=== PATIENT | female | born 1985 | race Caucasian/White ===

== ENCOUNTER 2018-08-11 22:10 | Observation (INO) | payer OTHER ==
[2018-08-11] MEDS ORDERED: SODIUM CHLORIDE 0.9% 1,000 ML IV STA (22:27)
[2018-08-11] MEDS ORDERED: MORPHINE SULFATE 4 MG/ML SYRINGE IV STA (22:27)
[2018-08-11 23:13] LABS: Basophils % (A) 0 %; Eosinophils # (A) 0.3 k/uL (0-0.7); Eosinophils % (A) 2 %; HGB 14.1 gm/dL (11.4-16.0); Lymphocytes # (A) 0.8 k/uL (1.0-4.8); Lymphocytes % (A) 5 %; MCH 29.3 pg (25.0-35.0); MCHC 31.9 g/dL (31.0-37.0); Mean Platelet Volume 7.4; Monocytes # (A) 0.7 k/uL (0-1.0); Monocytes % (A) 4 %; Neutrophils # (A) 13.2 k/uL (1.3-7.7); Neutrophils % (A) 87 %; Platelet Count 208 k/uL (150-450); RBC 4.79 m/uL (3.80-5.40); RDW 12.9 % (11.5-15.5); WBC 15.1 k/uL (3.8-10.6)
[2018-08-11] MEDS: ONDANSETRON 4 MG/2 ML VIAL IVP STA (23:14)
[2018-08-11 23:27] LABS: ALT 29 U/L (9-52); AST 27 U/L (14-36); Albumin 4.5 g/dL (3.5-5.0); Alkaline Phosphatase 75 U/L (38-126); Amylase 53 U/L (30-110); Anion Gap 10 mmol/L; Appearance,Urine Cloudy (Clear); Bacteria,Urine Rare /hpf; Bilirubin,Urine Negative (Negative); Blood Urea Nitrogen 16 mg/dL (7-17); Blood,Urine Negative (Negative); Calcium 9.8 mg/dL (8.4-10.2); Carbon Dioxide 26 mmol/L (22-30); Chloride 104 mmol/L (98-107); Color,Urine Yellow; Glucose 107 mg/dL (74-99); Glucose,Urine (UA) Negative (Negative); Ketones,Urine Negative (Negative); Leukocyte Esterase,Urine Negative (Negative); Lipase 81 U/L (23-300); Mucus,Urine Rare /hpf; Nitrite,Urine Negative (Negative); Potassium 4.3 mmol/L (3.5-5.1); Protein,Urine Negative (Negative); RBC,Urine 1 /hpf (0-5); Sodium 140 mmol/L (137-145); Specific Gravity,Urine 1.022 (1.001-1.035); Squamous Epithelial Cell,Urine 8 /hpf (0-4); Total Bilirubin 1.1 mg/dL (0.2-1.3); Total Protein 7.6 g/dL (6.3-8.2); Urobilinogen,Urine <2.0 mg/dL (<2.0); WBC,Urine 2 /hpf (0-5)
[2018-08-11] MEDS ORDERED: HYDROmorphone 2 MG/ML 1 ML SYRINGE IVP STA (23:59)
--- NOTE | 2018-08-11 23:59 | ED ---
Abdominal Pain HPI - General Source: patient Mode of arrival: ambulatory Limitations: no limitations <Stacy Yoon - Last Filed: 08/12/18 01:05> <Maggie Holt - Last Filed: 08/12/18 02:57> - General Chief Complaint: Abdominal Pain Stated Complaint: abd pain Time Seen by Provider: 08/11/18 22:20 - History of Present Illness Initial Comments: 33-year-old female patient presents to the emergency department today for evaluation of right lower quadrant abdominal pain. Patient states the pain started around 1700 this afternoon. She describes the pain as a sharp stabbing pain. States the pain does radiate through to her back. States that she has vomited twice since pain onset. Denies any diarrhea. Patient states she did attempt to have a bowel movement but was unable to. Denies fever or chills. Patient states that she's had normal urination with no hematuria, dysuria, urinary frequency, urinary urgency. Patient denies history of similar type pain. Patient denies any recent rash, shortness breath, chest pain, back pain, numbness, tingling, dizziness, weakness, headache, visual changes, or any other complaints. (Stacy Yoon) - Related Data Home Medications Medication Instructions Recorded Confirmed Zinc 50 mg PO DAILY 07/01/15 08/11/18 Simethicone [Gas-X] 125 mg PO DAILY PRN 08/11/18 08/11/18 Allergies Allergy/AdvReac Type Severity Reaction Status Date / Time No Known Allergies Allergy Verified 08/11/18 22:34 Review of Systems ROS Other: All systems not noted in ROS Statement are negative. <Stacy Yoon - Last Filed: 08/12/18 01:05> ROS Other: All systems not noted in ROS Statement are negative. <Maggie Holt - Last Filed: 08/12/18 02:57> ROS Statement: Those systems with pertinent positive or pertinent negative responses have been documented in the HPI. Past Medical History Additional Past Medical History / Comment(s): HOLE IN HEART History of Any Multi-Drug Resistant Organisms: None Reported Additional Past Surgical History / Comment(s): HEART SURGERY, SHOULDER FRACTURE Past Psychological History: No Psychological Hx Reported Smoking Status: Never smoker Past Alcohol Use History: None Reported Past Drug Use History: None Reported <Stacy Yoon - Last Filed: 08/12/18 01:05> General Exam Limitations: no limitations General appearance: alert, in no apparent distress, other (Physical well- developed, well-nourished adult female patient in mild distress related to pain. Vital signs upon presentation are temperature 98.1F, pulse 79, respirations 18, blood pressure 133/74, pulse ox 96% on room air.) Eye exam: Present: normal appearance, PERRL, EOMI. Absent: scleral icterus, conjunctival injection, periorbital swelling ENT exam: Present: normal exam, normal oropharynx, mucous membranes moist Respiratory exam: Present: normal lung sounds bilaterally. Absent: respiratory distress, wheezes, rales, rhonchi, stridor Cardiovascular Exam: Present: regular rate, normal rhythm, normal heart sounds. Absent: systolic murmur, diastolic murmur, rubs, gallop, clicks GI/Abdominal exam: Present: soft, tenderness (Right lower quadrant tenderness), normal bowel sounds. Absent: distended, guarding, rebound, rigid Neurological exam: Present: alert, oriented X3, CN II-XII intact Psychiatric exam: Present: normal affect, normal mood Skin exam: Present: warm, dry, intact, normal color. Absent: rash <Stacy Yoon M - Last Filed: 08/12/18 01:05> Course Vital Signs 08/11/18 08/11/18 08/12/18 22:16 23:17 00:11 Temperature 98.1 F Pulse Rate 79 89 85 Respiratory 18 16 18 Rate Blood Pressure 133/74 117/78 O2 Sat by Pulse 96 99 100 Oximetry 08/12/18 01:02 Temperature Pulse Rate 85 Respiratory 16 Rate Blood Pressure 102/72 O2 Sat by Pulse 98 Oximetry Medical Decision Making - Lab Data Result diagrams: 08/11/18 23:00 08/11/18 23:00 - Radiology Data Radiology results: report reviewed, image reviewed <Stacy Yoon - Last Filed: 08/12/18 01:05> - Lab Data Result diagrams: 08/11/18 23:00 08/11/18 23:00 <Maggie Holt - Last Filed: 08/12/18 02:57> - Medical Decision Making 33-year-old female patient percents emergency department today for evaluation of right lower quadrant abdominal pain. Patient to episodes of vomiting. Physical examination does reveal tenderness to the right lower quadrant. Labs reviewed and did reveal elevated white blood cell count at 15,000. CT abdomen and pelvis was obtained and did show evidence for acute appendicitis with no complicating process. Patient was started on Zosyn. We will provide IV fluids and pain management. Patient will be NPO. We'll admit to Dr. Mohamud. (Stacy Yoon) Saw the patient, patient with right lower quadrant abdominal pain and leukocytosis and CT confirmation of acute appendicitis. Patient care was discussed with surgeon home paraprofessional Dr. Mohamud who accepts the patient to her service with a plan for appendectomy later in the day. (Maggie Holt) - Lab Data Lab Results 08/11/18 08/11/18 08/11/18 Range/Units 23:00 23:00 23:00 WBC 15.1 H (3.8-10.6) k/uL RBC 4.79 (3.80-5.40) m/uL Hgb 14.1 (11.4-16.0) gm/dL Hct 44.0 (34.0-46.0) % MCV 92.0 (80.0-100.0) fL MCH 29.3 (25.0-35.0) pg MCHC 31.9 (31.0-37.0) g/dL RDW 12.9 (11.5-15.5) % Plt Count 208 (150-450) k/uL Neutrophils % 87 % Lymphocytes % 5 % Monocytes % 4 % Eosinophils % 2 % Basophils % 0 % Neutrophils # 13.2 H (1.3-7.7) k/uL Lymphocytes # 0.8 L (1.0-4.8) k/uL Monocytes # 0.7 (0-1.0) k/uL Eosinophils # 0.3 (0-0.7) k/uL Basophils # 0.0 (0-0.2) k/uL Sodium 140 (137-145) mmol/L Potassium 4.3 (3.5-5.1) mmol/L Chloride 104 (98-107) mmol/L Carbon Dioxide 26 (22-30) mmol/L Anion Gap 10 mmol/L BUN 16 (7-17) mg/dL Creatinine 0.67 (0.52-1.04) mg/dL Est GFR (CKD-EPI)AfAm >90 (>60 ml/min/1.73 sqM) Est GFR (CKD-EPI)NonAf >90 (>60 ml/min/1.73 sqM) Glucose 107 H (74-99) mg/dL Calcium 9.8 (8.4-10.2) mg/dL Total Bilirubin 1.1 (0.2-1.3) mg/dL AST 27 (14-36) U/L ALT 29 (9-52) U/L Alkaline Phosphatase 75 (38-126) U/L Total Protein 7.6 (6.3-8.2) g/dL Albumin 4.5 (3.5-5.0) g/dL Amylase 53 (30-110) U/L Lipase 81 (23-300) U/L Urine Color Urine Appearance (Clear) Urine pH (5.0-8.0) Ur Specific [place] (1.001-1.035) Urine Protein (Negative) Urine Glucose (UA) (Negative) Urine Ketones (Negative) Urine Blood (Negative) Urine Nitrite (Negative) Urine Bilirubin (Negative) Urine Urobilinogen (<2.0) mg/dL Ur Leukocyte Esterase (Negative) Urine RBC (0-5) /hpf Urine WBC (0-5) /hpf Ur Squamous Epith Cells (0-4) /hpf Urine Bacteria (None) /hpf Urine Mucus (None) /hpf Urine HCG, Qual Not Detected (Not Detectd) 08/11/18 Range/Units 23:00 WBC (3.8-10.6) k/uL RBC (3.80-5.40) m/uL Hgb (11.4-16.0) gm/dL Hct (34.0-46.0) % MCV (80.0-100.0) fL MCH (25.0-35.0) pg MCHC (31.0-37.0) g/dL RDW (11.5-15.5) % Plt Count (150-450) k/uL Neutrophils % % Lymphocytes % % Monocytes % % Eosinophils % % Basophils % % Neutrophils # (1.3-7.7) k/uL Lymphocytes # (1.0-4.8) k/uL Monocytes # (0-1.0) k/uL Eosinophils # (0-0.7) k/uL Basophils # (0-0.2) k/uL Sodium (137-145) mmol/L Potassium (3.5-5.1) mmol/L Chloride (98-107) mmol/L Carbon Dioxide (22-30) mmol/L Anion Gap mmol/L BUN (7-17) mg/dL Creatinine (0.52-1.04) mg/dL Est GFR (CKD-EPI)AfAm (>60 ml/min/1.73 sqM) Est GFR (CKD-EPI)NonAf (>60 ml/min/1.73 sqM) Glucose (74-99) mg/dL Calcium (8.4-10.2) mg/dL Total Bilirubin (0.2-1.3) mg/dL AST (14-36) U/L ALT (9-52) U/L Alkaline Phosphatase (38-126) U/L Total Protein (6.3-8.2) g/dL Albumin (3.5-5.0) g/dL Amylase (30-110) U/L Lipase (23-300) U/L Urine Color Yellow Urine Appearance Cloudy H (Clear) Urine pH 5.0 (5.0-8.0) Ur Specific [place] 1.022 (1.001-1.035) Urine Protein Negative (Negative) Urine Glucose (UA) Negative (Negative) Urine Ketones Negative (Negative) Urine Blood Negative (Negative) Urine Nitrite Negative (Negative) Urine Bilirubin Negative (Negative) Urine Urobilinogen <2.0 (<2.0) mg/dL Ur Leukocyte Esterase Negative (Negative) Urine RBC 1 (0-5) /hpf Urine WBC 2 (0-5) /hpf Ur Squamous Epith Cells 8 H (0-4) /hpf Urine Bacteria Rare H (None) /hpf Urine Mucus Rare H (None) /hpf Urine HCG, Qual (Not Detectd) - Radiology Data CT abdomen and pelvis with contrast was obtained. Report was reviewed in its entirety. Impression by Dr. Suresh shows acute appendicitis. No complications. (Stacy Yoon) Disposition Decision to Admit Reason: Admit from EC Decision Date: 08/12/18 Decision Time: 01:07 <Stacy Yoon - Last Filed: 08/12/18 01:05> <Maggie Holt - Last Filed: 08/12/18 02:57> Clinical Impression: Acute appendicitis Disposition: ADMITTED IP TO THIS HOSP Condition: Serious
[2018-08-12] MEDS ORDERED: MORPHINE SULFATE 2 MG/ML SYRINGE IVP STA
--- NOTE | 2018-08-12 00:35 | CT ---
EXAM: CT Abdomen and Pelvis With Intravenous Contrast CLINICAL HISTORY: ITS.REASON CT Reason: Pain TECHNIQUE: Axial computed tomography images of the abdomen and pelvis with intravenous contrast. CTDI is 8.30 mGy and DLP is 256.30 mGy-cm. This CT exam was performed using one or more of the following dose reduction techniques: automated exposure control, adjustment of the mA and/or kV according to patient size, and/or use of iterative reconstruction technique. COMPARISON: No relevant prior studies available. FINDINGS: Lung bases: Unremarkable. No mass. No consolidation. ABDOMEN: Liver: Unremarkable. No mass. Gallbladder and bile ducts: Unremarkable. No calcified stones. No ductal dilation. Pancreas: Unremarkable. No mass. No ductal dilation. Spleen: Unremarkable. No splenomegaly. Adrenals: Unremarkable. No mass. Kidneys and ureters: Unremarkable. No solid mass. No hydronephrosis. Stomach and bowel: See below. PELVIS: Appendix: Acute retrocecal appendicitis, measuring 13.6 mm in thickness. Bladder: Unremarkable. No mass. Reproductive: Unremarkable as visualized. ABDOMEN and PELVIS: Intraperitoneal space: No abscess, perforation/free air, free fluid, or bowel obstruction. Bones/joints: S-shaped curvature of the spine. No acute fracture. No dislocation. Soft tissues: Unremarkable. Vasculature: Unremarkable. No abdominal aortic aneurysm. Lymph nodes: Unremarkable. No enlarged lymph nodes. IMPRESSION: Acute appendicitis. No complications. <MYCVCSECTION> Critical Value Communications 08/12/18 00:33 Call Doctor Regarding Above results, called Stacy Yoon NP on 08/12 00:32 (-04:00)
[2018-08-12] MEDS ORDERED: PIPERACILLIN-TAZOBACTAM 3.375 GM in SODIUM CHLORIDE 0.9% 100 ML IVPB STA (00:39)
[2018-08-12] MEDS ORDERED: NALOXONE 0.4 MG/ML 1 ML VIAL IV PRN ×2 (01:07→16:30)
[2018-08-12] MEDS ORDERED: MORPHINE SULFATE 4 MG/ML SYRINGE IV PRN (01:07)
[2018-08-12] MEDS ORDERED: ACETAMINOPHEN TAB 325 MG TAB PO PRN (01:07)
[2018-08-12] MEDS: SODIUM CHLORIDE 0.9% 1,000 ML IV SCH ×3 (01:34→19:18)
[2018-08-12] MEDS: ONDANSETRON 4 MG/2 ML VIAL IVP PRN ×2 (01:56→09:07)
[2018-08-12] MEDS ORDERED: ceFAZolin IN SWFI 2 GM/20 ML SYRINGE IVP ONE (06:30)
[2018-08-12 06:49] VITALS: BMI 29.0
[2018-08-12] MEDS: PIPERACILLIN-TAZOBACTAM 3.375 GM in SODIUM CHLORIDE 0.9% 100 ML IVPB SCH ×2 (09:07→19:19)
--- NOTE | 2018-08-12 11:03 | P.GSHP ---
<Shena Valdez A - Last Filed: 08/12/18 10:55> History of Present Illness H&P Date: 08/12/18 Chief Complaint: abdominal pain CHIEF COMPLAINT: abdominal pain HISTORY OF PRESENT ILLNESS: 33-year-old female who presented to the emergency room with a chief complaint of abdominal pain. Patient reports her pain began around 5-6 pm yesterday. The pain was in the right lower quadrant and it came on suddenly. She initially thought she was having gas pains and took some OTC gas relief pills, but her pain persisted. She also reports nausea and two episodes of vomiting prior to coming to the hospital. Reports nausea this morning with a small episode of emesis. She denies fever or chills. Reports last BM was two days ago. Stool was normal in characteristics. Denies constipation or diarrhea. Patient reports her menstrual cycle just finished on Wednesday of this week. PAST MEDICAL HISTORY: See list. PAST SURGICAL HISTORY: See list. SOCIAL HISTORY: No illicit drug use. REVIEW OF SYSTEMS: CONSTITUTIONAL: Denies fever or chills. HEENT: Denies blurred vision, vision changes, or eye pain. Denies hemoptysis CARDIOVASCULAR: Denies chest pain or pressure. RESPIRATORY: No shortness of breath. GASTROINTESTINAL: Refer to HPI for pertinent findings HEMATOLOGIC: Denies bleeding disorders. GENITOURINARY: Denies any blood in urine. SKIN: Denies pruitis. Denies rash. PHYSICAL EXAM: VITAL SIGNS: Reviewed. GENERAL: Well-developed in no acute distress. HEENT: No sclera icterus. Extraocular movements grossly intact. Moist buccal mucosa. Head is atraumatic, normocephalic. ABDOMEN: Soft. Nondistended. Tenderness upon palpation of right lower quadrant and near umbilicus. Positive bowel sounds. NEUROLOGIC: Alert and oriented. Cranial nerves II through XII grossly intact. IMAGING: Per radiologist's dictation: 1. Computed tomography scan abdomen and pelvis: Acute retrocecal appendicitis, measuring 13.6 mm in thickness ASSESSMENT: 1. Abdominal pain 2. Acute appendicitis 3. Leukocytosis PLAN: 1. NPO. Continue IV fluids 2. Monitor WBC. Repeat in AM. Continue antibiotics 3. Patient scheduled for robotic laparoscopic appendectomy today with Dr. Mohamud Nurse practitioner note has been reviewed by physician. Signing provider agrees with the documented findings, assessment, and plan of care. Past Medical History Additional Past Medical History / Comment(s): Hole in hole. History of Any Multi-Drug Resistant Organisms: None Reported Additional Past Surgical History / Comment(s): Heart surgery. Shoulder sx. Past Anesthesia/Blood Transfusion Reactions: No Reported Reaction Smoking Status: Never smoker Medications and Allergies Home Medications Medication Instructions Recorded Confirmed Type Zinc 50 mg PO DAILY 07/01/15 08/11/18 History Simethicone [Gas-X] 125 mg PO DAILY PRN 08/11/18 08/11/18 History Allergies Allergy/AdvReac Type Severity Reaction Status Date / Time No Known Allergies Allergy Verified 08/11/18 22:34 Surgical - Exam Vital Signs Temp Pulse Resp BP Pulse Ox 98.1 F 79 18 133/74 96 08/11/18 22:16 08/11/18 22:16 08/11/18 22:16 08/11/18 22:16 08/11/18 22:16 Results - Labs 08/11/18 23:00 08/11/18 23:00 Abnormal Lab Results - Last 24 Hours (Table) 08/11/18 08/11/18 08/11/18 Range/Units 23:00 23:00 23:00 WBC 15.1 H (3.8-10.6) k/uL Neutrophils # 13.2 H (1.3-7.7) k/uL Lymphocytes # 0.8 L (1.0-4.8) k/uL Glucose 107 H (74-99) mg/dL Urine Appearance Cloudy H (Clear) Ur Squamous Epith Cells 8 H (0-4) /hpf Urine Bacteria Rare H (None) /hpf Urine Mucus Rare H (None) /hpf Diabetes panel 08/11/18 Range/Units 23:00 Sodium 140 (137-145) mmol/L Potassium 4.3 (3.5-5.1) mmol/L Chloride 104 (98-107) mmol/L Carbon Dioxide 26 (22-30) mmol/L BUN 16 (7-17) mg/dL Creatinine 0.67 (0.52-1.04) mg/dL Glucose 107 H (74-99) mg/dL Calcium 9.8 (8.4-10.2) mg/dL AST 27 (14-36) U/L ALT 29 (9-52) U/L Alkaline Phosphatase 75 (38-126) U/L Total Protein 7.6 (6.3-8.2) g/dL Albumin 4.5 (3.5-5.0) g/dL Calcium panel 08/11/18 Range/Units 23:00 Calcium 9.8 (8.4-10.2) mg/dL Albumin 4.5 (3.5-5.0) g/dL Pituitary panel 08/11/18 Range/Units 23:00 Sodium 140 (137-145) mmol/L Potassium 4.3 (3.5-5.1) mmol/L Chloride 104 (98-107) mmol/L Carbon Dioxide 26 (22-30) mmol/L BUN 16 (7-17) mg/dL Creatinine 0.67 (0.52-1.04) mg/dL Glucose 107 H (74-99) mg/dL Calcium 9.8 (8.4-10.2) mg/dL Adrenal panel 08/11/18 Range/Units 23:00 Sodium 140 (137-145) mmol/L Potassium 4.3 (3.5-5.1) mmol/L Chloride 104 (98-107) mmol/L Carbon Dioxide 26 (22-30) mmol/L BUN 16 (7-17) mg/dL Creatinine 0.67 (0.52-1.04) mg/dL Glucose 107 H (74-99) mg/dL Calcium 9.8 (8.4-10.2) mg/dL Total Bilirubin 1.1 (0.2-1.3) mg/dL AST 27 (14-36) U/L ALT 29 (9-52) U/L Alkaline Phosphatase 75 (38-126) U/L Total Protein 7.6 (6.3-8.2) g/dL Albumin 4.5 (3.5-5.0) g/dL Assessment and Plan (1) Leukocytosis Current Visit: Yes Status: Acute Code(s): D72.829 - ELEVATED WHITE BLOOD CELL COUNT, UNSPECIFIED SNOMED Code(s): 793407376 (2) Abdominal pain Current Visit: Yes Status: Acute Code(s): R10.9 - UNSPECIFIED ABDOMINAL PAIN SNOMED Code(s): 89185942 (3) Nausea and vomiting Current Visit: Yes Status: Acute Code(s): R11.2 - NAUSEA WITH VOMITING, UNSPECIFIED SNOMED Code(s): 37987305 (4) Acute appendicitis Current Visit: Yes Status: Acute Code(s): K35.80 - UNSPECIFIED ACUTE APPENDICITIS SNOMED Code(s): 28731148 <Magi Mohamud N - Last Filed: 08/12/18 15:10> Surgical - Exam Vital Signs Temp Pulse Resp BP Pulse Ox 98.1 F 79 18 133/74 96 08/11/18 22:16 08/11/18 22:16 08/11/18 22:16 08/11/18 22:16 08/11/18 22:16 Results - Labs 08/11/18 23:00 08/11/18 23:00 Abnormal Lab Results - Last 24 Hours (Table) 08/11/18 08/11/18 08/11/18 Range/Units 23:00 23:00 23:00 WBC 15.1 H (3.8-10.6) k/uL Neutrophils # 13.2 H (1.3-7.7) k/uL Lymphocytes # 0.8 L (1.0-4.8) k/uL Glucose 107 H (74-99) mg/dL Urine Appearance Cloudy H (Clear) Ur Squamous Epith Cells 8 H (0-4) /hpf Urine Bacteria Rare H (None) /hpf Urine Mucus Rare H (None) /hpf Diabetes panel 08/11/18 Range/Units 23:00 Sodium 140 (137-145) mmol/L Potassium 4.3 (3.5-5.1) mmol/L Chloride 104 (98-107) mmol/L Carbon Dioxide 26 (22-30) mmol/L BUN 16 (7-17) mg/dL Creatinine 0.67 (0.52-1.04) mg/dL Glucose 107 H (74-99) mg/dL Calcium 9.8 (8.4-10.2) mg/dL AST 27 (14-36) U/L ALT 29 (9-52) U/L Alkaline Phosphatase 75 (38-126) U/L Total Protein 7.6 (6.3-8.2) g/dL Albumin 4.5 (3.5-5.0) g/dL Calcium panel 08/11/18 Range/Units 23:00 Calcium 9.8 (8.4-10.2) mg/dL Albumin 4.5 (3.5-5.0) g/dL Pituitary panel 08/11/18 Range/Units 23:00 Sodium 140 (137-145) mmol/L Potassium 4.3 (3.5-5.1) mmol/L Chloride 104 (98-107) mmol/L Carbon Dioxide 26 (22-30) mmol/L BUN 16 (7-17) mg/dL Creatinine 0.67 (0.52-1.04) mg/dL Glucose 107 H (74-99) mg/dL Calcium 9.8 (8.4-10.2) mg/dL Adrenal panel 08/11/18 Range/Units 23:00 Sodium 140 (137-145) mmol/L Potassium 4.3 (3.5-5.1) mmol/L Chloride 104 (98-107) mmol/L Carbon Dioxide 26 (22-30) mmol/L BUN 16 (7-17) mg/dL Creatinine 0.67 (0.52-1.04) mg/dL Glucose 107 H (74-99) mg/dL Calcium 9.8 (8.4-10.2) mg/dL Total Bilirubin 1.1 (0.2-1.3) mg/dL AST 27 (14-36) U/L ALT 29 (9-52) U/L Alkaline Phosphatase 75 (38-126) U/L Total Protein 7.6 (6.3-8.2) g/dL Albumin 4.5 (3.5-5.0) g/dL - Imaging CT scan - abdomen: report reviewed (Dilated appendix with appendicolith), image reviewed CT scan - pelvis: report reviewed, image reviewed Assessment and Plan (1) Acute appendicitis Current Visit: Yes Status: Acute Code(s): K35.80 - UNSPECIFIED ACUTE APPENDICITIS SNOMED Code(s): 40965457
[2018-08-12] MEDS ORDERED: IV FLUID CONTINUATION 1,000 ML IV ONE (12:58)
[2018-08-12] MEDS: ONDANSETRON 4 MG/2 ML VIAL IVP STA (13:47)
[2018-08-12] MEDS ORDERED: DEXAMETHASONE SOD PHOS (MDV) 100 MG/10 ML VIAL IVP ONE (13:47)
[2018-08-12] MEDS: HEPARIN SODIUM,PORCINE 5,000 UNIT/ML 1 ML VIAL SQ SCH ×2 (13:52→23:29)
[2018-08-12] MEDS ORDERED: MIDAZOLAM 2 MG/2 ML VIAL ONE (15:18)
[2018-08-12] MEDS ORDERED: fentaNYL (PF) 50 MCG/ML 2 ML AMP ONE (15:18)
[2018-08-12] MEDS ORDERED: PROPOFOL 10 MG/ML 20 ML VIAL IV ONE (15:18)
[2018-08-12] MEDS ORDERED: ROCURONIUM BROMIDE 10 MG/ML 10 ML VIAL IV ONE (15:18)
[2018-08-12] MEDS ORDERED: LIDOCAINE 1% INJ 10MG/ML (20 ML MDV) ONE (15:18)
[2018-08-12] MEDS ORDERED: GLYCOPYRROLATE 0.2 MG/ML 2 ML VIAL ONE (15:18)
[2018-08-12] MEDS ORDERED: NEOSTIGMINE 1 MG/ML 10 ML VIAL ONE (15:18)
[2018-08-12] MEDS ORDERED: LACTATED RINGERS 1,000 ML IV ONE ×2 (15:20→16:50)
[2018-08-12] MEDS ORDERED: BUPIVACAIN-EPI 0.5%-1:200,000 30 ML VIAL SQ ONE (15:54)
[2018-08-12] MEDS ORDERED: HYDROcodone/APAP 5-325MG 1 EACH TAB PO PRN (16:30)
--- NOTE | 2018-08-12 16:33 | P.OP ---
Date of Procedure: 08/12/18 Preoperative Diagnosis: acute appendicitis Postoperative Diagnosis: same Procedure(s) Performed: robot appendectomy Anesthesia: GETA, local Pathology: other (appendix) Condition: stable Disposition: floor Operative Findings: 1. Left indirect hernia 2. Nonperforated appendicitis with dilated distal tip
[2018-08-12] MEDS: KETOROLAC 30 MG/ML 1 ML VIAL IVP SCH ×2 (16:47→22:10)
[2018-08-12] MEDS ORDERED: HYDROmorphone 1 MG/ML 1 ML SYRINGE IVP ONE ×2 (16:58→17:00)
[2018-08-12] MEDS ORDERED: ONDANSETRON 4 MG/2 ML VIAL IVP ONE (17:00)
[2018-08-13] MEDS: PIPERACILLIN-TAZOBACTAM 3.375 GM in SODIUM CHLORIDE 0.9% 100 ML IVPB SCH ×2 (00:51→09:37)
[2018-08-13] MEDS: KETOROLAC 30 MG/ML 1 ML VIAL IVP SCH ×2 (03:58→09:37)
[2018-08-13 07:24] LABS: Basophils % (A) 0 %; Eosinophils % (A) 0 %; HCT 38.6 % (34.0-46.0); HGB 12.5 gm/dL (11.4-16.0); Lymphocytes # (A) 0.8 k/uL (1.0-4.8); Lymphocytes % (A) 9 %; MCHC 32.2 g/dL (31.0-37.0); MCV 92.9 fL (80.0-100.0); Mean Platelet Volume 6.8; Monocytes # (A) 0.5 k/uL (0-1.0); Monocytes % (A) 6 %; Neutrophils # (A) 7.2 k/uL (1.3-7.7); Neutrophils % (A) 84 %; Platelet Count 184 k/uL (150-450); RBC 4.16 m/uL (3.80-5.40); RDW 12.7 % (11.5-15.5); WBC 8.6 k/uL (3.8-10.6)
[2018-08-13 07:36] LABS: ALT 27 U/L (9-52); AST 17 U/L (14-36); Albumin 3.3 g/dL (3.5-5.0); Alkaline Phosphatase 58 U/L (38-126); Anion Gap 7 mmol/L; Blood Urea Nitrogen 13 mg/dL (7-17); Calcium 8.8 mg/dL (8.4-10.2); Carbon Dioxide 23 mmol/L (22-30); Chloride 110 mmol/L (98-107); Glucose 86 mg/dL (74-99); Potassium 4.5 mmol/L (3.5-5.1); Sodium 140 mmol/L (137-145); Total Bilirubin 1.8 mg/dL (0.2-1.3); Total Protein 5.9 g/dL (6.3-8.2)
[2018-08-13] MEDS ORDERED: PANTOPRAZOLE 40 MG/10 ML VIAL IVP SCH (09:00)
[2018-08-13] MEDS: HEPARIN SODIUM,PORCINE 5,000 UNIT/ML 1 ML VIAL SQ SCH (09:01)
[2018-08-13 09:12] VITALS: BP 106/64; PULSE 88; RESP 15; TEMP 98.6
--- NOTE | 2018-08-13 11:07 | P.DS ---
Providers Date of admission: 08/12/18 01:14 Expected date of discharge: 08/13/18 Attending physician: Magi Mohamud Primary care physician: Stated None - Discharge Diagnosis(es) (1) Acute appendicitis Status: Acute (2) Abdominal pain Status: Acute (3) Leukocytosis Status: Acute (4) Nausea and vomiting Status: Acute Hospital Course: CHIEF COMPLAINT: Acute appendicitis HISTORY OF PRESENT ILLNESS: The patient is a 33-year-old female presented with acute appendicitis. She is status post appendectomy. Pain is improved. Leukocytosis resolved. No fevers or chills. PHYSICAL EXAM: VITAL SIGNS: Reviewed Vital Signs Temp 98.6 F 08/13/18 06:45 Pulse 88 08/13/18 06:45 Resp 15 08/13/18 06:45 BP 106/64 08/13/18 06:45 Pulse Ox 94 L 08/13/18 06:45 Intake & Output 08/12/18 08/13/18 08/13/18 18:59 06:59 18:59 Intake Total 1890 950 240 Output Total 5 Balance 1885 950 240 Intake: IV 1650 Intake, IV Titration 950 Amount Piperacillin-Tazobactam 3 200 .375 gm In Sodium Chloride 0.9% 100 ml @ 25 mls/hr IVPB Q8H [facility] Rx#: [id number] Sodium Chloride 0.9% 1, 750 000 ml @ 75 mls/hr IV . [id number] [facility] Rx#:[id number] Oral 240 240 Output: Estimated Blood Loss 5 Other: Voiding Method Toilet # Voids 1 1 CONSTITUTIONAL: Well developed and in no acute distress. EYES: Conjuctivae without sclera icterus. Extraocular movements grossly intact. HEAD, EARS, NOSE, THROAT: Moist buccal mucosa. Head is atraumatic, normocephalic. Hears conversational speech. No nasal drainage. NECK: Supple. No thyroidomegaly. RESPIRATORY: Non-labored respirations and equal bilateral excursions. CARDIOVASCULAR: Palpable 2+ radial pulses. Regular rate regular rhythm. ABDOMEN: Soft. Nondistended. Incisions clean dry and intact. Dressing clean dry and intact. Minimal incisional pain MUSCULOSKELETAL: No gross deformity of the lower extremities noted. No clubbing. No cyanosis. SKIN: Good skin turgor .Well perfused. NEUROLOGIC: Cranial nerves I through XII grossly intact. No focal or lateralizing signs. PSYCH: Appropriate affect. Alert and oriented to person, place and time. CLINCAL LABS: Reviewed Laboratory Last Values WBC 8.6 k/uL (3.8-10.6) 08/13/18 06:29 RBC 4.16 m/uL (3.80-5.40) 08/13/18 06:29 Hgb 12.5 gm/dL (11.4-16.0) 08/13/18 06:29 Hct 38.6 % (34.0-46.0) 08/13/18 06:29 MCV 92.9 fL (80.0-100.0) 08/13/18 06:29 MCH 30.0 pg (25.0-35.0) 08/13/18 06:29 MCHC 32.2 g/dL (31.0-37.0) 08/13/18 06:29 RDW 12.7 % (11.5-15.5) 08/13/18 06:29 Plt Count 184 k/uL (150-450) 08/13/18 06:29 Neutrophils % 84 % 08/13/18 06:29 Lymphocytes % 9 % 08/13/18 06:29 Monocytes % 6 % 08/13/18 06:29 Eosinophils % 0 % 08/13/18 06:29 Basophils % 0 % 08/13/18 06:29 Neutrophils # 7.2 k/uL (1.3-7.7) 08/13/18 06:29 Lymphocytes # 0.8 k/uL (1.0-4.8) L 08/13/18 06:29 Monocytes # 0.5 k/uL (0-1.0) 08/13/18 06:29 Eosinophils # 0.0 k/uL (0-0.7) 08/13/18 06:29 Basophils # 0.0 k/uL (0-0.2) 08/13/18 06:29 Sodium 140 mmol/L (137-145) 08/13/18 06:29 Potassium 4.5 mmol/L (3.5-5.1) 08/13/18 06:29 Chloride 110 mmol/L (98-107) H 08/13/18 06:29 Carbon Dioxide 23 mmol/L (22-30) 08/13/18 06:29 Anion Gap 7 mmol/L 08/13/18 06:29 BUN 13 mg/dL (7-17) 08/13/18 06:29 Creatinine 0.76 mg/dL (0.52-1.04) 08/13/18 06:29 Est GFR (CKD-EPI)AfAm >90 (>60 ml/min/1.73 sqM) 08/13/18 06:29 Est GFR (CKD-EPI)NonAf >90 (>60 ml/min/1.73 sqM) 08/13/18 06:29 Glucose 86 mg/dL (74-99) 08/13/18 06:29 Calcium 8.8 mg/dL (8.4-10.2) 08/13/18 06:29 Total Bilirubin 1.8 mg/dL (0.2-1.3) H 08/13/18 06:29 AST 17 U/L (14-36) 08/13/18 06:29 ALT 27 U/L (9-52) 08/13/18 06:29 Alkaline Phosphatase 58 U/L (38-126) 08/13/18 06:29 Total Protein 5.9 g/dL (6.3-8.2) L 08/13/18 06:29 Albumin 3.3 g/dL (3.5-5.0) L 08/13/18 06:29 Amylase 53 U/L (30-110) 08/11/18 23:00 Lipase 81 U/L (23-300) 08/11/18 23:00 Urine Color Yellow 08/11/18 23:00 Urine Appearance Cloudy (Clear) H 08/11/18 23:00 Urine pH 5.0 (5.0-8.0) 08/11/18 23:00 Ur Specific [place] 1.022 (1.001-1.035) 08/11/18 23:00 Urine Protein Negative (Negative) 08/11/18 23:00 Urine Glucose (UA) Negative (Negative) 08/11/18 23:00 Urine Ketones Negative (Negative) 08/11/18 23:00 Urine Blood Negative (Negative) 08/11/18 23:00 Urine Nitrite Negative (Negative) 08/11/18 23:00 Urine Bilirubin Negative (Negative) 08/11/18 23:00 Urine Urobilinogen <2.0 mg/dL (<2.0) 08/11/18 23:00 Ur Leukocyte Esterase Negative (Negative) 08/11/18 23:00 Urine RBC 1 /hpf (0-5) 08/11/18 23:00 Urine WBC 2 /hpf (0-5) 08/11/18 23:00 Ur Squamous Epith Cells 8 /hpf (0-4) H 08/11/18 23:00 Urine Bacteria Rare /hpf (None) H 08/11/18 23:00 Urine Mucus Rare /hpf (None) H 08/11/18 23:00 Urine HCG, Qual Not Detected (Not Detectd) 08/11/18 23:00 RADIOLOGY: Report reviewed ASSESSMENT: 1. Acute appendicitis PLAN: 1. Patient may be discharged home with follow-up in the office in 2 weeks. No return to work until cleared by surgeon. Pertinent Studies: CT abdomen pelvis acute appendicitis Procedures: Laparoscopic appendectomy Patient Condition at Discharge: Stable Plan - Discharge Summary Discharge Rx Participant: No New Discharge Prescriptions: New Naproxen Sodium [Naproxen Sodium ER] 500 mg PO DAILY #10 tab HYDROcodone/APAP 5-325MG [Shafer 5-325] 1 tab PO Q6HR PRN #5 tab PRN Reason: Pain Continue Zinc 50 mg PO DAILY Simethicone [Gas-X] 125 mg PO DAILY PRN PRN Reason: GAS Discharge Medication List Zinc 50 mg PO DAILY 07/01/15 [History] Simethicone [Gas-X] 125 mg PO DAILY PRN 08/11/18 [History] HYDROcodone/APAP 5-325MG [Shafer 5-325] 1 tab PO Q6HR PRN #5 tab 08/13/18 [Rx] Naproxen Sodium [Naproxen Sodium ER] 500 mg PO DAILY #10 tab 08/13/18 [Rx] Follow up Appointment(s)/Referral(s): Magi Mohamud MD [STAFF PHYSICIAN] - 08/23/18 None,Stated [Primary Care Provider] - 1-2 days Patient Instructions/Handouts: Appendicitis (GEN), Laparoscopic Appendectomy (DC) Activity/Diet/Wound Care/Special Instructions: May shower. No bath tub soaks. Remove dressing after 08/15/2018. CANNOT RETURN TO WORK UNTIL CLEARED BY SURGEON, AUGUST 24, 2018. Discharge Disposition: HOME SELF-CARE
== END 2018-08-13 13:10 | disposition home or self-care (01) ==
LOC: EC 22:10 → 4MS4W 08-12 01:14 → 4SSUR 08-12 16:40
PROVIDERS: ADMIT Surgery Plastic and Reconstructive Surgery; ATTEND Surgery Plastic and Reconstructive Surgery
DX: K35.80 Unspecified acute appendicitis (principal); Z87.898 Personal history of other specified conditions
CPT/HCPCS: 44970; S2900; 36415; 74177; 80053; 81001; 81025; 82150; 83690; 85025; 87040; 88304